=== PATIENT | female | born 1940 | race Hispanic/Latino ===

== ENCOUNTER 2022-12-22 16:17 | Emergency (ER) | payer OTHER, MEDICAID | END 2022-12-22 18:09 | disposition left against medical advice (07) | LOC: CSHERS 16:17 | DX: S00.83XA Contusion of other part of head, initial encounter (principal); S60.222A Contusion of left hand, initial encounter; W01.198A Fall on same level from slipping, tripping and stumbling with subsequent striking against other object, initial encounter ==

== ENCOUNTER 2024-10-26 19:07 | Emergency (ER) | payer OTHER, MEDICAID | END 2024-10-26 22:25 | disposition home or self-care (01) | LOC: CSHERS 19:07 | DX: S00.03XA Contusion of scalp, initial encounter (principal); V48.5XXA Car driver injured in noncollision transport accident in traffic accident, initial encounter; Y92.410 Unspecified street and highway as the place of occurrence of the external cause | CPT/HCPCS: 70450 ==